=== PATIENT | female | born 2000 | race Caucasian/White ===

== ENCOUNTER 2019-04-23 15:11 | Emergency (ER) | payer OTHER ==
[~2019-04-23] VITALS: Ht 170.2 cm; Wt 54.4 kg
[2019-04-23] MEDS ORDERED: NKM (15:22)
[2019-04-23 15:28] VITALS: BP 106/64
--- NOTE | 2019-04-23 15:28 | NUR ---
ED Nurse Note: PT WALKED IN TO ER TODAY FROM HOME. AOX4. MOTHER AT BEDSIDE. PT PRESENTS WITH ~1 INCH LACERATION TO RIGHT PALM AFTER CLIMBING A FENCE AND CUTTING IT ABOUT 30 MINUTES AGO. NO ACTIVE BLEEDING AT THIS TIME. CIRCULATION AND SENSATION INTACT, CAP REFILL <2 SECONDS, FULL ROM OF HAND AND DIGITS. PT DENIES NUMBNESS OR TINGLING. PT STATES PAIN IS AT 5/10.
[2019-04-23] MEDS ORDERED: Ketorolac 30mg Inj IM ONE (15:45)
[2019-04-23] MEDS ORDERED: Tetanus/Diptheria/Pertussis IM ONE (15:45)
[2019-04-23] MEDS ORDERED: Lidocaine 1% Plain 30 ml INJ ONE (15:45)
--- NOTE | 2019-04-23 16:20 | Emergency Room Report ---
History of Present Illness General Chief Complaint: Laceration Source: Patient Present Illness HPI 18-year-old female with no significant past medical history here complaining of a laceration that happened today on her right hand. Patient reports that she was coming down offenses as well to cut her hand. Patient is rating the pain 10 out of 10 without radiation. Has full range of motion of her right hand and no motor or sensory deficits noted. Denies tingling and numbness sensation. Has not taken medication for pain yet. Patient is not up-to-date with her tetanus shot. Denies all other injuries, chest pain, shortness of breath, palpitation, or other associated symptoms. Superficial laceration about 2 cm is noted on the thenar side of palm of her right hand Allergies: Coded Allergies: No Known Allergies (Unverified , 04/23/19) Patient History Past Medical History: see triage record Past Surgical History: unable to obtain Pertinent Family History: none Last Menstrual Period: on going mens Now: No Immunizations: other - Tdap given today Reviewed Nursing Documentation: PMH: Agreed; PSxH: Agreed Nursing Documentation-PMH Past Medical History: No Stated History Review of Systems All Other Systems: negative except mentioned in HPI Physical Exam Vital Signs Date Time Temp Pulse Resp B/P (MAP) Pulse Ox O2 Delivery O2 Flow Rate FiO2 04/23/19 15:20 97.9 62 16 100/63 (75) 100 Room Air Sp02 EP Interpretation: reviewed, normal General Appearance: no apparent distress, alert, GCS 15, non-toxic Head: normocephalic, atraumatic Eyes: bilateral eye normal inspection, bilateral eye PERRL ENT: hearing grossly normal, normal pharynx, no angioedema, normal voice Neck: full range of motion, supple/symm/no masses Respiratory: chest non-tender, lungs clear, normal breath sounds, speaking full sentences Cardiovascular #1: regular rate, rhythm, no edema Cardiovascular #2: 2+ radial (R), 2+ radial (L) Gastrointestinal: normal bowel sounds, non tender, soft, non-distended, no guarding, no rebound Genitourinary: no CVA tenderness Musculoskeletal: back normal, gait/station normal, normal range of motion, non- tender Neurologic: alert, oriented x3, responsive, motor strength/tone normal, sensory intact, speech normal Skin: laceration - Superficial 2 cm laceration on palm of right hand Lymphatic: normal inspection Procedures Laceration/Wound Repair Laceration/Wound Repair : Consent: Verbal Wound Location: upper extremity - Right hand Wound's Depth, Shape: superficial Wound Length (cm): 2 Wound Explored: clean Irrigated w/ Saline (ccs): 10 Betadine Prep?: Yes Anesthesia: 1% Lidocaine Volume Anesthetic (ccs): 10 Wound Debrided: None Wound Repaired With: sutures Suture Size/Type: 4:0, nylon Number of Sutures: 7 Layer Closure?: Yes Sterile Dressing Applied?: Yes Splint Applied?: No Sling Applied?: No Patient Tolerated: Well Complications: None Medical Decision Making PA Attestation All my diagnosis and treatment plans were reviewed ad discussed with my supervising physician Dr. Arevalo Diagnostic Impression: Primary Impression: Laceration of right hand ER Course 18-year-old female with no significant past medical history here complaining of a laceration that happened today on her right hand. Patient reports that she was coming down offenses as well to cut her hand. Patient is rating the pain 10 out of 10 without radiation. Has full range of motion of her right hand and no motor or sensory deficits noted. Denies tingling and numbness sensation. Has not taken medication for pain yet. Patient is not up-to-date with her tetanus shot. Denies all other injuries, chest pain, shortness of breath, palpitation, or other associated symptoms. Superficial laceration about 2 cm is noted on the thenar side of palm of her right hand Ddx considered but are not limited to : Superficial laceration, deep laceration , tendon involvement with laceration, laceration with foreign body Vital signs: are WNL, pt. is afebrile H&PE are most consistent with: Superficial laceration of right hand ORDERS: Keflex, ibuprofen, right hand x-ray ED INTERVENTIONS: Tdap, laceration repair DISCHARGE: At this time pt. is stable for d/c to home. Will provide printed patient care instructions, and any necessary prescriptions. Care plan and follow up instructions have been discussed with the patient prior to discharge. Sutures to be removed in 7 to 10 days take medication as directed follow-up with a primary care provider if any worsening symptoms return to the emergency room. Other X-Ray Diagnostic Results Other X-Ray Diagnostic Results : X-Ray ordered: Right hand # of Views/Limited Vs Complete: 3 View Indication: Pain EP Interpretation: Yes PAULA Xray: Interpretation reviewed, by supervising MD, and agrees with findings. Interpretation: no dislocation, no soft tissue swelling, no fractures, other - No foreign body Impression: No acute disease Electronically Signed by: Paola Leblanc PA-C Last Vital Signs Date Time Temp Pulse Resp B/P (MAP) Pulse Ox O2 Delivery O2 Flow Rate FiO2 04/23/19 15:28 98.1 64 17 106/64 100 Room Air Disposition: HOME, SELF-CARE Condition: Stable Scripts Ibuprofen* (MOTRIN*) 600 Mg Tablet 600 MG ORAL Q8H PRN for For Pain, #30 TAB 0 Refills Prov: Paola Monaco 04/23/19 Cephalexin* (KEFLEX*) 500 Mg Capsule 500 MG ORAL EVERY 6 HOURS for 7 Days, #28 CAP Prov: Paola Monaco 04/23/19 Referrals: NON PHYSICIAN (PCP) Patient Instructions: Laceration Care, Adult Additional Instructions: Take medication as directed follow-up with your primary care provider. If worsening symptoms return to emergency room sutures to be removed in 7 to 10 days Paola Monaco Apr 23, 2019 16:20
[2019-04-23] MEDS ORDERED: CEPHALEXIN500 MG ORAL (16:21)
[2019-04-23] MEDS ORDERED: IBUPROFEN600 MG ORAL (16:21)
--- NOTE | 2019-04-23 16:33 | Diagnostic Imaging Report ---
Indication: Right hand pain Findings: 2 views of the right hand were obtained. There is no foreign body identified. No acute fractures, erosions, or periosteal reaction are seen. Soft tissues are unremarkable. Impression: No acute findings.
[2019-04-23 16:52] VITALS: BP 104/62
--- NOTE | 2019-04-23 16:52 | NUR ---
ED Nurse Note: PT LAYING PEACEFULLY IN BED IN NAD. AOX4. PRESCRIPTIONS AND DISCHARGE PAPERWORK EXPLAINED TO PT. PT VERBALIZES UNDERSTANDING AND ALL QUESTIONS ANSWERED. PRESCRIPTIONS AND DISCHARGE PAPERWORK GIVEN TO PT AND ID WRISTBAND REMOVED. PT WALKED OUT OF ER WITH STEADY GAIT AND ALL BELONGINGS.
== END 2019-04-23 16:52 | disposition home or self-care (01) ==
LOC: EMR 15:54
DX: S61.411A Laceration without foreign body of right hand, initial encounter (principal); Z23 Encounter for immunization; W45.8XXA Other foreign body or object entering through skin, initial encounter; Y92.9 Unspecified place or not applicable
CPT/HCPCS: 12001; 73120; 90471; 90715; 96372; 99283; J1885; J2001